=== PATIENT | female | born 1960 | race Asian ===

== ENCOUNTER 2016-08-10 22:08 | Emergency (ER) | payer OTHER ==
[2016-08-10 22:30] VITALS: BP 150/72
== END 2016-08-10 22:30 | disposition home or self-care (01) ==
LOC: ED 22:08
DX: S80.11XA Contusion of right lower leg, initial encounter (principal); W54.0XXA Bitten by dog, initial encounter; Y93.89 Activity, other specified; Y99.8 Other external cause status; Y92.89 Other specified places as the place of occurrence of the external cause